=== PATIENT | female | born 1940 | race Caucasian/White ===

== ENCOUNTER 2018-04-12 09:21 | Outpatient (CLI) | payer OTHER ==
[~2018-04-12 09:21] MED LIST: COZAAR100 MG; INTESTINEX1 CA1 PO; PERCOCET 5/3251 TAB PO; PRILOSEC20 MG PO; SOCHLOR15 ML
== END 2018-04-12 09:26 | disposition home or self-care (01) ==
LOC: LAB 09:21
DX: E53.9 Vitamin B deficiency, unspecified (principal); K92.1 Melena; Z12.11 Encounter for screening for malignant neoplasm of colon; Z13.89 Encounter for screening for other disorder; R53.1 Weakness; R30.0 Dysuria; E78.4 Other hyperlipidemia; R35.1 Nocturia; R19.5 Other fecal abnormalities; E03.8 Other specified hypothyroidism; R10.84 Generalized abdominal pain; E55.9 Vitamin D deficiency, unspecified; E53.8 Deficiency of other specified B group vitamins

== ENCOUNTER 2019-04-18 05:00 | Day surgery (SDC) | payer OTHER ==
[~2019-04-18 05:00] MED LIST changes: +GABAPENTIN300 MG PO; +GABAPENTIN800 MG PO; +LEVOTHY PO; +LOSARTAN-HCTZ1 EAC2 PO; +TRAMAD PO
== END 2019-04-18 11:10 | disposition home or self-care (01) ==
LOC: CIR.AMB 05:00
DX: M67.843 Other specified disorders of tendon, right hand (principal); M65.341 Trigger finger, right ring finger

== ENCOUNTER 2019-05-23 05:35 | Day surgery (SDC) | payer OTHER | END 2019-05-23 10:35 | disposition home or self-care (01) | LOC: CIR.AMB 05:35 | DX: M65.842 Other synovitis and tenosynovitis, left hand (principal) ==

== ENCOUNTER 2021-01-26 08:04 | Outpatient (CLI) | payer OTHER | END 2021-01-26 08:10 | disposition home or self-care (01) | LOC: RX STUDY 08:04 | PROVIDERS: ATTEND Internal Medicine Gastroenterology | DX: K44.9 Diaphragmatic hernia without obstruction or gangrene (principal) ==